=== PATIENT | female | born 1950 | race Two or more races ===

== ENCOUNTER 2022-10-29 18:38 | Inpatient (IN) | payer MEDICAID ==
[~2022-10-29] VITALS: Ht 152.4 cm; Wt 93.9 kg
[2022-10-29] MEDS ORDERED: ONDANSETRON HCL 4 MG/2 ML VIAL IVP ONE (19:00)
[2022-10-29] MEDS ORDERED: SODIUM CHLORIDE 0.9% 2,750 ML IV ONE (19:00)
[2022-10-29] MEDS ORDERED: ACETAMINOPHEN 500 MG TABLET PO ONE (19:00)
[2022-10-29] MEDS ORDERED: ATOR-2 PO (19:28)
[2022-10-29] MEDS ORDERED: ERGO500093 PO (19:28)
[2022-10-29] MEDS ORDERED: ASPI81TA87 PO (19:28)
[2022-10-29] MEDS ORDERED: LOSA-382 PO (19:28)
[2022-10-29] MEDS ORDERED: MULT-660 PO (19:28)
[2022-10-29] MEDS ORDERED: METF-1211 PO (19:28)
[2022-10-29] MEDS ORDERED: GABA-1181 PO (19:28)
[2022-10-29 19:32] LABS: BASOPHILS % (AUTO) 0.4 % (0.0-2.0); EOSINOPHILS % (AUTO) 0.5 % (1.0-6.0); HEMATOCRIT 41.4 % (36-46); HEMOGLOBIN 13.5 g/dL (12.0-16.0); LYMPHOCYTES # (AUTO) 0.4 K/uL (1.0-4.8); LYMPHOCYTES % (AUTO) 9.3 % (22.0-44.0); MEAN CORPUSCULAR HEMOGLOBIN 28.3 pg (26.0-34.0); MEAN CORPUSCULAR HGB CONC 32.6 G/dL (31.0-37.0); MEAN CORPUSCULAR VOLUME 87 fL (80-100); MONOCYTES # (AUTO) 0.2 K/uL (0.1-1.0); MONOCYTES % (AUTO) 4.3 % (2.0-9.0); NEUTROPHILS # (AUTO) 3.8 K/uL (1.8-7.7); PLATELET COUNT (AUTO) 245 K/uL (150-450); RED BLOOD CELL COUNT(AUTO) 4.79 MIL/uL (4.00-5.20); RED CELL DISTRIBUTION WIDTH 13.7 % (11.5-14.5)
[2022-10-29 19:33] LABS: NEUTROPHILS % (AUTO) 85.5 % (40.0-70.0)
[2022-10-29 19:42] LABS: ANION GAP 12 mmol/L (8-16); CALCIUM, TOTAL 8.8 mg/dL (8.8-10.5); CARBON DIOXIDE 28 mmol/L (22-29); CHLORIDE 97 mmol/L (98-107); CREATININE 0.83 mg/dL (0.60-1.30); GLOMERULAR FILTR. RATE CALC > 60 mL/min (>60); GLUCOSE,RANDOM 362 mg/dL (70-110); POTASSIUM 4.2 mmol/L (3.5-5.1); SODIUM SERUM 137 mmol/L (136-145); UREA NITROGEN, BLOOD 25 mg/dL (7-18)
[2022-10-29 19:45] LABS: COVID AG,FIA SOURCE NASOPHARYNGEAL
[2022-10-29 19:47] LABS: ALANINE AMINOTRANSFERASE 20 U/L (12-78); ALBUMIN 3.3 g/dL (3.4-5.0); ALKALINE PHOSPHATASE 146 U/L (46-116); ASPARTATE AMINOTRANSFERASE 20 U/L (15-37); BILIRUBIN,TOTAL 0.6 mg/dL (0.1-1.0); CREATINE KINASE, TOTAL ONLY 41 U/L (26-192); TOTAL PROTEIN, SERUM 7.7 g/dL (6.4-8.2)
[2022-10-29 19:51] LABS: LACTIC ACID 1.8 mmol/L (0.4-2.0)
[2022-10-29 20:51] LABS: APPEARANCE,URINE CLEAR (CLEAR); BILIRUBIN,URINE NEGATIVE (NEGATIVE); GLUCOSE, URINE (UA) >=1000 mg/dL (NEGATIVE); LEUKOCYTE ESTERASE ,URINE MODERATE (NEGATIVE); NITRATE,URINE NEGATIVE (NEGATIVE); OCCULT BLOOD,URINE SMALL (NEGATIVE); PH,URINE 5.5 (5.0-8.0); PROTEIN,URINE 30-70 mg/dL (NEGATIVE); SPECIFIC GRAVITIY, URINE 1.026 (1.003-1.030); UROBILINOGEN,URINE <=1.0 mg/dL (<=1.0)
[2022-10-29] MEDS ORDERED: CefTRIAXone 1 GM/DEXTROSE 50 ML IV ONE (21:00)
[2022-10-29 21:01] LABS: BACTERIA,URINE Few /HPF (None Seen); SQUAMOUS EPITHELIAL CELL,UR Rare /LPF (None Seen)
[2022-10-29] MEDS ORDERED: ONDANSETRON HCL 4 MG/2 ML VIAL IVP PRN ×2 (21:30)
[2022-10-29] MEDS ORDERED: SODIUM CHLORIDE 0.9% 1,000 ML IV ONE (21:30)
[2022-10-29] MEDS ORDERED: ACETAMINOPHEN 325 MG TABLET PO PRN (21:30)
[2022-10-29] MEDS ORDERED: MAGNESIUM HYDROXIDE SUSPENSION 30 ML UDCUP PO PRN (21:30)
[2022-10-29] MEDS ORDERED: DEXTROSE 50%-WATER 25 GM/50 ML SYRINGE IVP PRN (21:30)
[2022-10-29 22:00] LABS: GLUCOMETER DEV NAME(LOC) ERT.5; GLUCOSE,POINT OF CARE 225 MG/DL (70-110)
[2022-10-29] MEDS: INSULIN LISPRO 100 UNITS/ML SQ PRN (22:33)
[2022-10-29] MEDS ORDERED: DiphenhydrAMINE HCL 50 MG/ML VIAL IVP ONE (22:45)
[2022-10-29] MEDS: HEPARIN SODIUM,PORCINE 5,000 UNITS/ML VIAL SQ SCH (23:31)
[2022-10-29 23:35] VITALS: BP 113/64
[2022-10-30 04:14] VITALS: BP 125/58
[2022-10-30] MEDS: OxyCODONE HCL/ACETAMINOPHEN 5-325 MG TABLET PO PRN ×2 (05:19→11:39)
[2022-10-30 05:41] LABS: GLUCOMETER DEV NAME(LOC) 6N.1; GLUCOSE,POINT OF CARE 161 MG/DL (70-110)
[2022-10-30] MEDS: INSULIN LISPRO 100 UNITS/ML SQ PRN ×4 (06:31→20:50)
[2022-10-30] MEDS ORDERED: MetFORMIN HCL 500 MG TABLET PO SCH (08:00)
[2022-10-30 08:02] VITALS: BP 117/66
[2022-10-30] MEDS: HEPARIN SODIUM,PORCINE 5,000 UNITS/ML VIAL SQ SCH ×3 (08:45→23:19)
[2022-10-30] MEDS ORDERED: FAMOTIDINE 20 MG TABLET PO SCH (09:00)
[2022-10-30] MEDS ORDERED: FAMOTIDINE 20 MG TABLET PO ONE (12:45)
[2022-10-30] MEDS ORDERED: DiphenhydrAMINE HCL 25 MG CAPSULE PO ONE (12:45)
[2022-10-30] MEDS ORDERED: PredniSONE 20 MG TABLET PO ONE (12:45)
[2022-10-30 15:05] VITALS: BP 112/57
[2022-10-30] MEDS: GABAPENTIN 300 MG CAPSULE PO SCH ×2 (16:25→19:31)
[2022-10-30] MEDS: MetFORMIN HCL 500 MG TABLET PO SCH (17:36)
[2022-10-30 18:16] LABS: GLUCOMETER DEV NAME(LOC) 6N.1; GLUCOSE,POINT OF CARE 176 MG/DL (70-110)
[2022-10-30 19:26] VITALS: BP 119/54
[2022-10-30] MEDS: ACETAMINOPHEN 325 MG TABLET PO PRN (19:31)
[2022-10-30] MEDS ORDERED: SODIUM CHLORIDE 0.9% 500 ML IV ONE (20:43)
[2022-10-30] MEDS ORDERED: *CLINICAL-LEVOFLOXACIN IVPB DOSING CLINICAL ONE (20:45)
[2022-10-30] MEDS: FAMOTIDINE 20 MG TABLET PO SCH (20:49)
[2022-10-30] MEDS: DiphenhydrAMINE HCL 25 MG CAPSULE PO SCH (20:49)
[2022-10-30 20:51] LABS: GLUCOMETER DEV NAME(LOC) 6N.1; GLUCOSE,POINT OF CARE 237 MG/DL (70-110)
[2022-10-30] MEDS ORDERED: CefTRIAXone 1 GM/DEXTROSE 50 ML IV SCH (21:00)
[2022-10-30] MEDS ORDERED: LEVOFLOXACIN 750 MG/D5% WATER 150 ML IV SCH (21:00)
[2022-10-31 02:31] LABS: GLUCOMETER DEV NAME(LOC) 6N.2B; GLUCOSE,POINT OF CARE 226 MG/DL (70-110)
[2022-10-31 05:22] VITALS: BP 118/53
[2022-10-31] MEDS: INSULIN LISPRO 100 UNITS/ML SQ PRN ×2 (05:55→11:51)
[2022-10-31 06:07] LABS: GLUCOMETER DEV NAME(LOC) 6N.1; GLUCOSE,POINT OF CARE 174 MG/DL (70-110)
[2022-10-31 07:58] VITALS: BP 140/71
[2022-10-31] MEDS: HEPARIN SODIUM,PORCINE 5,000 UNITS/ML VIAL SQ SCH (08:06)
[2022-10-31] MEDS: MetFORMIN HCL 500 MG TABLET PO SCH (08:06)
[2022-10-31] MEDS: GABAPENTIN 300 MG CAPSULE PO SCH (08:06)
[2022-10-31] MEDS: FAMOTIDINE 20 MG TABLET PO SCH (08:07)
[2022-10-31] MEDS: DiphenhydrAMINE HCL 25 MG CAPSULE PO SCH (08:07)
[2022-10-31] MEDS ORDERED: ATORVASTATIN CALCIUM 40 MG TABLET PO SCH (09:00)
[2022-10-31] MEDS ORDERED: ASPIRIN 81 MG DR TABLET PO SCH (09:00)
[2022-10-31] MEDS ORDERED: LOSARTAN POTASSIUM 50 MG TABLET PO SCH (09:00)
[2022-10-31] MEDS: ACETAMINOPHEN 325 MG TABLET PO PRN (11:20)
[2022-10-31 15:51] LABS: GLUCOMETER DEV NAME(LOC) 6N.2B; GLUCOSE,POINT OF CARE 195 MG/DL (70-110)
== END 2022-10-31 13:09 | disposition home or self-care (01) | DRG 720 ==
LOC: EMS 18:41 → 6N 23:07
PROVIDERS: ADMIT Internal Medicine; ATTEND Internal Medicine
DX: A41.9 Sepsis, unspecified organism (principal); E44.0 Moderate protein-calorie malnutrition; E11.65 Type 2 diabetes mellitus with hyperglycemia; N39.0 Urinary tract infection, site not specified; E66.01 Morbid (severe) obesity due to excess calories; Z68.41 Body mass index [BMI] 40.0-44.9, adult; Z20.822 Contact with and (suspected) exposure to COVID-19; Z83.3 Family history of diabetes mellitus
CPT/HCPCS: 51702; 71045; 80053; 81001; 82550; 82962; 83036; 83605; 84484; 85025; 87040; 87086; 87186; 93005; 97163; 99291; J0696; J1200; J1644; J1815; J1956; J2405; J7040; 36415-L1; 36415-TC